=== PATIENT | male | born 1945 | race African-American/Black ===

== ENCOUNTER → 2023-01-29 | Outpatient (CLI) | payer OTHER, SELFPAY ==
--- NOTE | 2023-01-29 08:52 | ECHOD_ITS ---
Reason For Study: CORONARY ARTERY DISEASE Procedure This was a 2D Doppler, Color Flow transthoracic echocardiogram. Myocardial strain analysis was performed in this exam to aid in the assessment of cardiac function. Exam performed in department. Left Ventricle Normal LV size. Left ventricular systolic function is normal. The estimated ejection fraction is 60 %. Normal diastology for age. No regional wall motion abnormalities noted. Right Ventricle Normal RV size. Normal systolic function. Atria Normal left atrium. Mitral Valve Normal mitral valve. Tricuspid Valve Normal tricuspid valve. Mild (1+) tricuspid valve insufficiency. Pulmonary artery systolic pressure is 32 mmHg. Aortic Valve Trisinus/trileaflet aortic valve. Pulmonic Valve Normal pulmonic valve. Great Vessels Normal aortic root. The pulmonary artery is normal size. Normal inferior vena cava. Pericardium/Pleural No pericardial effusion. MMode/2D Measurements & Calculations LVIDd: 4.0 cm IVSd: 1.4 cm LVOT diam: 1.9 cm LVIDs: 2.7 cm LVPWd: 1.2 cm LVOT area: 2.8 cm2 RVDd: 3.3 cm FS: 33.2 % Ao root diam: 3.6 cm LAV(MOD-bp): 43.0 ml LVAd ap4: 20.3 cm2 LAV(MOD-bp) Indexed: 20.1 ml/m2 LVLd ap4: 7.2 cm LAV(MOD-sp2): 45.8 ml EDV(MOD-sp4): 48.1 ml LAV(MOD-sp4): 38.6 ml EDV(sp4-el): 48.8 ml LVAs ap4: 11.6 cm2 LVLs ap4: 5.9 cm ESV(MOD-sp4): 19.6 ml ESV(sp4-el): 19.2 ml EF(MOD-sp4): 59.3 % EF(sp4-el): 60.7 % LVAd ap2: 21.2 cm2 SV(MOD-sp4): 28.5 ml SV(MOD-sp2): 31.1 ml LVLd ap2: 7.2 cm EDV(MOD-sp2): 53.3 ml EDV(sp2-el): 53.0 ml LVAs ap2: 12.7 cm2 LVLs ap2: 6.2 cm ESV(MOD-sp2): 22.2 ml ESV(sp2-el): 21.8 ml EF(MOD-sp2): 58.4 % SV(sp4-el): 29.6 ml LA dimension(2D): 4.0 cm LA A4 area: 15.5 cm2 RA A4 area: 16.4 cm2 Time Measurements MV dec time: 0.18 sec Doppler Measurements & Calculations MV E max mario: 68.0 cm/sec Lat Peak E' Mario: 13.9 cm/sec Med Peak E' Mario: 10.0 cm/sec MV A max mario: 52.8 cm/sec E/E' lat: 4.9 E/E' med: 6.8 MV E/A: 1.3 Ao V2 max: 87.0 cm/sec LV V1 max: 68.8 cm/sec MV dec slope: 368.0 cm/sec2 Ao max P.0 mmHg LV V1 max P.9 mmHg Ao V2 mean: 58.2 cm/sec LV V1 mean P.2 mmHg Ao mean P.5 mmHg LV V1 mean: 54.4 cm/sec Ao V2 VTI: 18.0 cm LV V1 VTI: 15.9 cm AV (velocity ratio): 0.89 JAYLEN(I,D): 2.5 cm2 JAYLEN(V,D): 2.2 cm2 SV(LVOT): 44.5 ml PA V2 max: 64.0 cm/sec TR max mario: 264.6 cm/sec PA max PG (full): 1.1 mmHg TR max P.0 mmHg ECHO/Echo Complete Interpretation Summary Normal LV size. Left ventricular systolic function is normal. The estimated ejection fraction is 60 %. Mild (1+) tricuspid valve insufficiency. The global longitudinal strain is moderately abnormal. The global longitudinal strain = -14.9% (abnormal). Ordering Physician: Haroldo Kasper Referring Physician: Haroldo Kasper Performed By: Jackie Boroks RDCS
== END | disposition home or self-care (01) ==
PROVIDERS: PCP Chiropractor; Referring Provider Chiropractor; Visit Provider Chiropractor
DX: I25.10 Atherosclerotic heart disease of native coronary artery without angina pectoris (principal); N20.0 Calculus of kidney
CPT/HCPCS: 93306